=== PATIENT | male | born 1965 | race Caucasian/White ===

== ENCOUNTER 2016-09-01 15:33 | Emergency (ER) | payer OTHER ==
[2016-09-01 16:02] VITALS: BP 163/98; PULSE 78; TEMP 98; BMI 32.3
--- NOTE | 2016-09-01 16:11 | PDOC ---
History of Present Illness - General Chief Complaint: Foreign Body (FB) Stated Complaint: PCP SENT FOR XRAY Time Seen by Provider: 09/01/16 16:09 - History of Present Illness Initial Comments: 09/01/16 16:39 Pt. is a 50 y/o male presenting to the ED c/o possibly swallowing his dental crown. Pt. states that he lost his crown 08/30/16. He is unsure if he swallowed the tooth. He went to his dentist for evaluation today, and the dentist was worried that the crown was in his intestines and sent the patient for an x-ray. Pt is unaware if he passed the crown. Pt. denies SOB, dyspnea, dyspnea on exertion, N/V/D, or abdominal pain. Past History - Past Medical History Allergies/Adverse Reactions: Allergies Allergy/AdvReac Type Severity Reaction Status Date / Time No Known Allergies Allergy Verified 09/01/16 15:58 Home Medications: Ambulatory Orders NK [No Known Home Medication] 09/01/16 HTN: Yes Other medical history: "vein problem" - Immunization History Immunization Up to Date: Yes - Psycho/Social/Smoking Cessation Hx Suicidal Ideation: No Smoking History: Current some day smoker Number of Cigarettes Smoked Daily: 5 Information on smoking cessation initiated: No Hx Alcohol Use: Yes Drug/Substance Use Hx: No Substance Use Type: Alcohol *Physical Exam - Vital Signs Last Vital Signs Temp Pulse Resp BP Pulse Ox 98.0 F 78 18 163/98 96 09/01/16 15:58 09/01/16 15:58 09/01/16 15:58 09/01/16 15:58 09/01/16 15:58 - Physical Exam General Appearance: Yes: Nourished, Appropriately Dressed. No: Apparent Distress Respiratory/Chest: positive: Lungs Clear (With good aeration to the bases. RML breath sounds clear), Normal Breath Sounds (Equal and bilateral breath sounds with equal chest rise.). negative: Chest Tender, Respiratory Distress, Accessory Muscle Use, Decreased Breath Sounds, Rales, Rhonchi, Stridor, Wheezing Cardiovascular: positive: Regular Rhythm, Regular Rate Gastrointestinal/Abdominal: positive: Normal Bowel Sounds, Flat, Soft. negative : Tender, Organomegaly, Pulsatile Mass Integumentary: positive: Normal Color, Dry, Warm Neurologic: positive: breaker off II-XII NML intact, Fully Oriented, Alert, Normal Mood/ Affect, Normal Response, Motor Strength /5 Medical Decision Making - Medical Decision Making 09/01/16 16:45 Pt. presents after potentially swallowing his crown. VVS. Abdominal and lung exams benign.Will order abdominal x-ray at this time. Low suspicion for retained tooth as pt. thinks he swallowed it two days ago. 09/01/16 17:20 X-ray shows no retained tooth (-) abdominal x-ray, will discharge pt. home at this time. Pt. understands discharge instructions and all questions were answered. *DC/Admit/Observation/Transfer Diagnosis at time of Disposition: Feared condition not demonstrated - Discharge Dispostion Disposition: HOME Condition at time of disposition: Stable Admit: No - Referrals Referrals: STAFF,NOT ON [Primary Care Provider] - - Patient Instructions Additional Instructions: You had x-rays done to look for your crown. There was no evidence that your crown was in your abdomen. This means that you either did not swallow your crown , or you passed the crown in your stool. You should return to your dentist to have a new crown placed. Return to the ED if you have any changes in your symptoms, fevers, chills, nausea, vomiting or diarrhea, or shortness of breath.
== END 2016-09-01 17:39 | disposition home or self-care (01) ==
LOC: JERFT 15:33
DX: T18.9XXA Foreign body of alimentary tract, part unspecified, initial encounter (principal); X58.XXXA Exposure to other specified factors, initial encounter; Y93.89 Activity, other specified; Y92.018 Other place in single-family (private) house as the place of occurrence of the external cause
CPT/HCPCS: 74020-TC; 99281-25